=== PATIENT | female | born 1990 ===

== ENCOUNTER 2020-07-05 10:58 | Emergency (ER) | payer MEDICAID ==
[~2020-07-05] VITALS: Ht 180.3 cm; Wt 126.0 kg
[2020-07-05] MEDS ORDERED: PLEASE ENTER ALLERGIES MC SCH (12:00)
[2020-07-05 12:16] LABS: BASOPHILS % (AUTO) 1 % (0-1); EOSINOPHILS % (AUTO) 2 % (1-7); LYMPHOCYTES % (AUTO) 35 % (22-44); MEAN CORPUSCULAR HEMOGLOBIN 24.4 pg (27.0-34.8); MEAN CORPUSCULAR HGB CONC 32.4 g/dL (32.4-35.8); MEAN PLATELET VOLUME 9.4 fL (7.4-10.4); MONOCYTES % (AUTO) 4 % (2-9); NEUTROPHILS % (AUTO) 58 % (42-75); PLATELET COUNT 232 x10^3/uL (130-400); RED BLOOD COUNT 5.64 x10^6/uL (3.82-5.3); RED CELL DISTRIBUTION WIDTH 17.7 % (9.6-15.2)
[2020-07-05 12:19] LABS: MD NO
[2020-07-05 12:29] LABS: CHLORIDE 103 mmol/L (98-107)
[2020-07-05 12:36] VITALS: BP 134/86
[2020-07-05 12:37] LABS: ALANINE AMINOTRANSFERASE 44 U/L (12-78); ALKALINE PHOSPHATASE 98 U/L (45-117); ANION GAP 6 mmol/L (5-15); BILIRUBIN,TOTAL 0.5 mg/dL (0.2-1.0); CALCIUM 8.7 mg/dL (8.5-10.1); CREATININE 1.25 mg/dL (0.55-1.02); TOTAL PROTEIN 8.5 g/dL (6.4-8.2); TROPONIN I < 0.015 ng/mL (0.000-0.045)
[2020-07-05 13:37] LABS: T4 (THYROXINE) < 0.5 mcg/dL (4.8-13.9)
== END 2020-07-05 12:54 | disposition home or self-care (01) ==
LOC: ED 12:11
DX: R07.89 Other chest pain (principal); R06.02 Shortness of breath; R94.31 Abnormal electrocardiogram [ECG] [EKG]; I10 Essential (primary) hypertension; E11.9 Type 2 diabetes mellitus without complications; E78.5 Hyperlipidemia, unspecified
CPT/HCPCS: 36415; 71045; 80053; 84436; 84443; 84484; 85025; 93005; 99285

== ENCOUNTER 2020-07-17 04:19 | Emergency (ER) | payer MEDICAID ==
[~2020-07-17] VITALS: Ht 180.3 cm; Wt 129.3 kg
--- NOTE | 2020-07-17 04:57 | NUR ---
ERP AT BEDSIDE
--- NOTE | 2020-07-17 05:16 | NUR ---
PT AMBULATED TO BATHROOM WITH STEADY GAIT, C/O "FEELING A LITTLE TIRED WALKING". NAD. URINE SAMPLE SENT TO LAB. PT DENIES ANY NEEDS AT THIS TIME. CALL LIGHT WITHIN REACH
[2020-07-17 05:31] LABS: MICROSCOPIC AUTO
[2020-07-17 05:44] LABS: BASOPHILS % (AUTO) 1 % (0-1); EOSINOPHILS % (AUTO) 4 % (1-7); LYMPHOCYTES % (AUTO) 33 % (22-44); MEAN CORPUSCULAR HEMOGLOBIN 25.1 pg (27.0-34.8); MEAN CORPUSCULAR HGB CONC 33.1 g/dL (32.4-35.8); MEAN PLATELET VOLUME 9.5 fL (7.4-10.4); MONOCYTES % (AUTO) 5 % (2-9); NEUTROPHILS % (AUTO) 58 % (42-75); PLATELET COUNT 212 x10^3/uL (130-400); RED BLOOD COUNT 5.23 x10^6/uL (3.82-5.3); RED CELL DISTRIBUTION WIDTH 18.7 % (9.6-15.2)
[2020-07-17 05:48] LABS: MD NO
[2020-07-17 05:55] LABS: ALANINE AMINOTRANSFERASE 42 U/L (12-78); ANION GAP 6 mmol/L (5-15); CALCIUM 8.1 mg/dL (8.5-10.1); CHLORIDE 100 mmol/L (98-107); CREATININE 1.18 mg/dL (0.55-1.02)
[2020-07-17 06:03] LABS: ALKALINE PHOSPHATASE 69 U/L (45-117); BILIRUBIN,TOTAL 0.6 mg/dL (0.2-1.0)
--- NOTE | 2020-07-17 06:05 | NUR ---
PT SITTING UPRIGHT ON GURNEY, NAD, VSS. PT DENIES ANY NEEDS AT THIS TIME. CALL LIGHT AND PERSONAL BELONGINGS WITHIN REACH.
[2020-07-17 06:06] LABS: T4 (THYROXINE) < 0.5 mcg/dL (4.8-13.9)
--- NOTE | 2020-07-17 06:35 | NUR ---
ERP AT BEDSIDE
[2020-07-17 06:52] VITALS: BP 115/78
--- NOTE | 2020-07-17 06:53 | NUR ---
DPatient given discharge instructions and they have confirmed that they understand the instructions. Patient ambulatory with steady gait.
== END 2020-07-17 06:55 | disposition home or self-care (01) ==
LOC: ED 06:40
DX: R73.9 Hyperglycemia, unspecified (principal); E89.0 Postprocedural hypothyroidism; R42 Dizziness and giddiness; R06.02 Shortness of breath; M54.5 Low back pain; I10 Essential (primary) hypertension; E78.5 Hyperlipidemia, unspecified
CPT/HCPCS: 36415; 71045; 80053; 81001; 84436; 84443; 84481; 84703; 85025; 93005; 99285